=== PATIENT | male | born 1940 | race Caucasian/White ===

== ENCOUNTER 2016-07-04 10:37 | Inpatient (IN) ==
[2016-07-04] MEDS ORDERED: NS 1,000 ML IV ONE ×2 (10:48→12:11)
[2016-07-04 11:08] LABS: MANUAL DIFF NEEDED? NO
[2016-07-04] MEDS ORDERED: TYLENOL PR ONE (11:09)
[2016-07-04 11:12] LABS: BASO% 0.1 % (0.0-0.8); EOS# 0.01 X1000 (0.0-0.7); EOS% 0.1 % (0.0-10.0); HEMATOCRIT 39.6 % (42.0-52.0); HEMOGLOBIN 13.3 g/dL (14.0-18.0); IMM GRAN# 0.02 X1000 (0.0-0.04); IMM GRAN% 0.2 % (0.0-0.5); LYMPH# 2.38 X1000 (1.2-3.4); LYMPH% 23.8 % (20.5-51.1); MCH 30.6 PG (27-31); MCHC 33.6 g/dL (33-37); MCV 91.2 FL (81-99); MONO# 1.27 X1000 (0.11-0.59); MONO% 12.7 % (1.7-9.3); MPV 10.1 FL (7.4-10.4); NEUT% 63.1 % (42.2-75.2); PLT 250 X1000 (130-400); RBC 4.34 XMIL (4.7-6.1)
[2016-07-04 11:19] LABS: URINE CULTURE NEEDED? NO; URINE MICRO REVIEW NEEDED? NO; URINE SOURCE CATH
[2016-07-04 11:21] LABS: INR 1.08; PROTIME 11.4 Seconds (9.2-11.7); PTT 32.4 Seconds (22.0-36.0)
[2016-07-04 11:24] LABS: BILIRUBIN URINE NEGATIVE (NEGATIVE); BLOOD URINE NEGATIVE (NEGATIVE); COLOR YELLOW; GLUCOSE URINE NEGATIVE (NEGATIVE); LEUKOCYTES URINE NEGATIVE (NEGATIVE); NITRITE URINE NEGATIVE (NEGATIVE); PROTEIN URINE TRACE mg/dL (NEGATIVE); SP GRAVITY URINE 1.022; TURBIDITY URINE CLEAR (CLEAR); UR EPITHELIAL CELLS <10 /HPF (<10); URINE BACTERIA NEGATIVE /HPF; URINE RBC <10 /HPF (<10); URINE WBC <10 /HPF (<10); UROBILINOGEN URINE NORMAL (NORMAL)
[2016-07-04 11:26] LABS: ALLEN TEST YES; BE 0.3 mmoll (-3.0-3.0); BLOOD TYPE ARTERIAL; DRAW SITE R RADIAL; METHB 2.3 % (0.0-1.5); O2(CT) 16.9 mL/dL (15.0-23.0); PCO2(98.6) 31 mmHg (35-45); PO2(98.6) 57 mmHg (60-100); SAMPLE BLOOD; SAO2 98.8 % (95.0-100.0); THB 12.7 g/dL (11.5-17.4); pH(98.6) 7.48 (7.35-7.45)
[2016-07-04 11:29] LABS: MODALITY CANNULA
[2016-07-04 11:37] LABS: AGAP 15; ALBUMIN 3.4 g/dL (3.5-5.0); ALKALINE PHOSPHATASE 62 U/L (32-122); BUN 19 mg/dL (8-22); CALCIUM 8.5 mg/dL (8.8-10.2); CHLORIDE 97 mmol/L (98-107); COSMO 272; GOT 29 U/L (10-34); GPT 15 U/L (10-44); MAGNESIUM 1.7 mg/dL (1.5-2.7); POTASSIUM 4.4 mmol/L (3.5-5.1); SODIUM 134 mmol/L (136-145); TCO2 22 mmol/L (25-35); TOTAL BILIRUBIN 0.55 mg/dL (0.20-1.00); TOTAL PROTEIN 6.5 g/dL (6.3-8.3)
[2016-07-04 11:39] LABS: CK PROFILE 463 U/L (24-204)
[2016-07-04 11:57] LABS: CK INDEX 0.3 (0.0-2.5); CK-MB 1.23 ng/mL (0.0-5.0)
--- NOTE | 2016-07-04 11:58 | Diag Imaging Result Document ---
PROCEDURE NAME: CHEST-PORTABLE - 07/04/2016 PORTABLE CHEST: FINDINGS: The lungs are well expanded. The heart is not enlarged. No pneumonia. No pleural effusions identified. IMPRESSION: Negative chest.
[2016-07-04] MEDS ORDERED: XOPENEX NEB INH ONE (13:39)
[2016-07-04] MEDS ORDERED: NS NEB INH SCH (13:45)
[2016-07-04] MEDS ORDERED: SODIUM CHLORIDE 0.9% 10 ML ONE (13:48)
[2016-07-04] MEDS ORDERED: ZOSYN 3.375 GM/NS 3.375 GM/50 ML IVPB IV ONE (14:08)
[2016-07-04] MEDS ORDERED: LEVAQUIN 750 MG/D5W 750 MG/150 ML IVPB IV ONE (14:08)
[2016-07-04 14:27] LABS: CK INDEX 0.3 (0.0-2.5); CK-MB 1.43 ng/mL (0.0-5.0)
[2016-07-04] MEDS ORDERED: VANCOMYCIN IV PER PHARMACY MISC SCH (15:15)
[2016-07-04] MEDS: HUMULIN R SUBQ SCH ×2 (16:00→22:00)
--- NOTE | 2016-07-04 16:00 | Diag Imaging Result Document ---
PROCEDURE NAME: HEAD W/O CONTRAST - 07/04/2016 CT BRAIN WITHOUT CONTRAST: FINDINGS: Dose reduction protocol. No parenchymal hemorrhage. No epidural or subdural hematoma. No subarachnoid hemorrhage. There is atrophy with chronic microvascular ischemic changes. No hydrocephalus. No sinus opacification although there is mucous in the right frontal and both ethmoid sinuses with minimal mucosal thickening in the left maxillary sinus. IMPRESSION: 1. No hemorrhage. 2. Atrophy with chronic microvascular ischemic changes. 3. Mild sinusitis. A preliminary report was given at 1:38 PM.
--- NOTE | 2016-07-04 16:01 | HISTORY AND PHYSICAL ---
PRIMARY CARE PROVIDER: Urban Fisher MD CHIEF COMPLAINT: Fever. HISTORY OF PRESENT ILLNESS: Mr. Kaushal Fraser is a 76-year-old male with a history of dementia, bipolar disorder, PTSD, peripheral vascular disease, hypertension whose normal state of awareness is with dementia. Apparently, according to staff, he was more altered than usual after he developed a fever last night. Upon admission, he had a fever of 104.6, with rigors. He is nonverbal, but would open his eyes. Chest x-ray did not reveal any acute findings, but a pulmonary arteriogram showed that he had bilateral infiltrates with the right being greater than the left. He was started on Zosyn and Levaquin, given IV fluid bolus x2 and Xopenex nebulizers. He was placed on 100% non-rebreather and titrated down to 50% Venturi mask. Upon assessment, patient was nonverbal, would nod yes or no to some questions, he nodded no to pain and yes to being cold. Along with that, he was in rigors. We will admit to the ICU for sepsis and pneumonia. We will also order a flu swab to rule out the flu. PAST MEDICAL HISTORY: Hypothyroidism. Seizures. Hypertension. B12 deficiency. Dementia. Diabetes mellitus type 2. Hyperlipidemia. Bipolar disorder. PTSD. Paroxysmal vertigo. Hearing loss. Peripheral vascular disease. GERD. Arthritis. BPH. SURGICAL HISTORY: Unable to obtain. There was no information sent from [facility]. SOCIAL HISTORY: He is a resident at [facility]. Otherwise, no other information was able to be obtained. FAMILY HISTORY: Unable to obtain. REVIEW OF SYSTEMS: Patient nodded no to pain and yes to cold. Otherwise, unable to obtain any other information from him. ALLERGIES: Lovastatin. Naproxen. HOME MEDICATIONS: Vitamin B12 1000 mcg p.o. daily. Zipsor 25 mg p.o. twice daily. Divalproex sodium or Depakote 1000 mg p.o. nightly. Monopril 10 mg p.o. daily. Albuterol and Atrovent nebs every 4 hours. Synthroid 50 mcg p.o. daily. Risperdal, looks like 1.5 mg p.o. daily. PHYSICAL EXAMINATION: VITAL SIGNS: Temperature on admit 104.6, temperature down to 101.5, heart rate is 117. Respiratory rate 25, blood pressure 111/65, O2 saturations 92% on 15 L Venturi mask. GENERAL: Mr. Fraser is an ill-appearing 76-year-old male. He is having rigors. He does nod yes and no to some questions. Otherwise, unable to obtain information from him. HEENT: Atraumatic, normocephalic. Pupils equal, round, reactive to light. Will not perform extraocular movements. Mucous membranes are dry. NECK: No JVD or carotid bruits noted. CARDIOVASCULAR: S1, S2. Tachycardic rate and rhythm. No rubs, gallops, murmurs. PULMONARY: Rhonchi in the bilateral bases, primarily posteriorly. Currently on 15 L Venturi mask, 50% FiO2 with mild work of breathing. No accessory muscle use. GI: Soft, nontender, nondistended. Positive bowel sounds x4. EXTREMITIES: Trace pulses in the lower extremity. Dorsalis pedal pulses were trace. Radial pulses were +2. The feet were cool. Would not follow commands enough to move all extremities. NEUROLOGIC: Nodded to some questions. Squeezed hands. Otherwise, would not follow any other commands. SKIN: Warm, dry, intact, but feet are cool. LABORATORY DATA: White blood cells 9000, hemoglobin 13, hematocrit 39, platelet count 250,000. INR 1.08. D-dimer 1.24. PH 7.48, pCO2 31. PO2 57. Bicarb 25, base excess 0.3, saturation 95%. This is on 4 L nasal cannula. Lactate is 2.1. Sodium 134, potassium 4.4, BUN 19, creatinine 1.1, glucose 117, calcium 8.5, magnesium 1.7, bilirubin 0.55, AST 29, ALT 15, CK 475. Troponin 0.011, albumin 3.4. Plasma lactate was 2 and 1.7. Urinalysis: Trace protein and 10 ketones. Otherwise, negative. IMAGING: Chest x-ray: Negative chest. Pulmonary arteriogram: No pulmonary emboli. Bilateral lower lobe posterior infiltrates, right greater than left. Head CT: No acute findings. EKG: Sinus tach, rate 135 with a QTc of 546. ASSESSMENT/PLAN: 1. Pneumonia with bilateral posterior lobe infiltrates, right greater than left. We will cover with broad-spectrum antibiotics, ceftazidime and vancomycin. He has also received Levaquin and Zosyn in the ER. We will try to obtain a sputum culture. 2. Sepsis, secondary to pneumonia. White count is normal, but he is significantly febrile up to 104.6. We will also order for influenza screening and strep screening. Again, he is covered with broad-spectrum antibiotics. He is tachycardic with increased respiratory rate. We will do intravenous fluid hydration and repeat lactate tomorrow. We will send to the intensive care unit for close monitoring. 3. Acute hypoxemic respiratory insufficiency. He started out on 100% nonrebreather, has been weaned down to 50% Venturi mask. Aggressive pulmonary toilet as able. We will do Xopenex nebulizers secondary to fast heart rate with Atrovent, budesonide and acetylcysteine nebulizer. 4. Hypothyroidism. Continue Synthroid. 5. Dementia. Bipolar. Posttraumatic stress disorder. Continue home medications. 6. Gastroesophageal reflux disease. Proton pump inhibitor. 7. Arthritis. Continue home nonsteroidal antiinflammatory drugs 8. Hyperlipidemia. Continue statin. 9. Diabetes mellitus type 2. Sliding scale insulin. Pattern blood glucoses. 10. Hypertension. Stable. We will also hold antihypertensives. 11. B12 deficiency. Continue B12. 12. Questionable seizure disorder. He is on Depakote. Could be used as mood stabilizer instead of seizures, but patient unable to state his history, and seizures were not listed as a history from [facility]. 13. Deep venous thrombosis prophylaxis. Low-dose Lovenox. Dictated by WALE Noel for Michoacano De Los Santos MD cc: WALE Noel MD Steven C. Chandler, MD
--- NOTE | 2016-07-04 16:03 | Diag Imaging Result Document ---
PROCEDURE NAME: ANGIOGRAM/PULMONARY ARTERIES - 07/04/2016 CT CHEST WITH INTRAVENOUS CONTRAST: FINDINGS: There are infiltrates and atelectasis in both lower lobes. Findings most pronounced in the left lower lobe. There are also infiltrates inferiorly in the right middle lobe. The heart is not enlarged. No thoracic aortic aneurysm or dissection. Mildly prominent mediastinal and right hilar lymph nodes. Normal opacification of the pulmonary arteries and their major branches. IMPRESSION: 1. Posterior and inferior lower lobe infiltrates and atelectasis. 2. No pulmonary emboli. A preliminary report was given at 1:41 PM.
--- NOTE | 2016-07-04 16:14 | PROVIDER DOCUMENTATION ---
This chart was entered by Alison Dutton Scribe, acting as scribe for Gray Long MD. HPI-General Adult - General Stated Complaint: Fever, AMS Time Seen by Provider: 07/04/16 10:40 Source: patient Allergies/Adverse Reactions: Patient Allergies Allergy/AdvReac Type Severity Reaction Status Date / Time lovastatin [From Mevacor] Allergy Unknown Verified 07/04/16 11:34 naproxen [From Naprosyn] Allergy Unknown Verified 07/04/16 11:34 Home Medications: Home Medication List Medication Instructions Recorded Confirmed Last Taken Type Cyanocobalamin (Vitamin B-12) 1,000 mcg PO DAILY 07/04/16 07/04/16 07/03/16 History [Vitamin B-12] Diclofenac Potassium [Zipsor] 25 mg PO BID 07/04/16 07/04/16 07/03/16 History Divalproex Sodium [Divalproex 1,000 mg PO QHS 07/04/16 07/04/16 07/03/16 History Sodium ER] Fosinopril Sodium [Monopril] 10 mg PO DAILY 07/04/16 07/04/16 07/03/16 History Ipratropium/Albuterol Sulfate 3 ml IH Q4HR 07/04/16 07/04/16 07/03/16 History [Iprat-Albut 0.5-3(2.5) mg/3 ml] Levothyroxine [Synthroid] 50 microgm PO DAILY 07/04/16 07/04/16 07/03/16 History Risperidone [Risperdal] 0.5 mg PO DAILY 07/04/16 07/04/16 07/03/16 History Risperidone [Risperdal] 1 mg PO DAILY 07/04/16 07/04/16 07/03/16 History - History of Present Illness -Gen Adult Nature of Presenting Problems: Pt is a 76 yom who came to the ED via EMS from [facility]. Pt has a hx of dementia, the pt was reported to be acting more out of it than usual today. Maxwell reports the pt had a fever last night and since then the pt has gotten worse. The pt is awake but refusing to answer any questions. Location of Pain/Injury: reports: none Pain Radiation: reports: no radiation Quality of Pain: reports: none Onset/Duration: reports: last night Timing: reports: still present Associated Symptoms: reports: fever/chills Similar Symptoms Previously?: No Recently seen or treated by another doctor?: Yes Review of Systems - Adult - REVIEW OF SYSTEMS - ADULT Constitutional: reports: chills, fever. denies: fatique, night sweats Eyes: reports: no symptoms reported Ears, Nose, Mouth & Throat: reports: no symptoms reported Cardiovascular: reports: no symptoms reported Respiratory: reports: no symptoms reported Gastrointestinal: denies: abdominal pain, diarrhea, nausea, vomiting Genitourinary: reports: no symptoms reported Musculoskeletal: reports: no symptoms reported Integumentary: reports: no symptoms reported Neurological: reports: other (AMS). denies: dizziness/vertigo, loss of balance Psychiatric: reports: no symptoms reported Endocrine: reports: no symptoms reported Hematologic/Lymphatic: reports: no symptoms reported Allergic/Immunologic: reports: no symptoms reported All Other Systems: Reviewed and Negative Past History - Adult - PAST MEDICAL HISTORY-ADULT Review of Records: reports: Nursing Assessment Review Major Childhood Illnesses: reports: denies history Cardiovascular: reports: denies history Respiratory: reports: denies history Gastrointestinal: reports: denies history Obstetrical/Gynecological: reports: denies history Genitourinary: reports: denies history Musculoskeletal: reports: denies history Neurological: reports: denies history Endocrine/Immune: reports: denies history Other Conditions: reports: denies history - IMMUNIZATION STATUS Childhood Immunizations: See Nurse Assessment Flu Vaccine: See Nurse Assessment - FAMILY HISTORY Family History: reviewed, not pertinent Physical Exam-General - CONSTITUTIONAL General Appearance: alert, no apparent distress, other (does not respond to questions) - EYES Eyes: PERRL/EOMI, pink conjunctivae - HEAD, EARS, NOSE, MOUTH & THROAT HENMT: normocephalic/atraumatic. negative: moist mucous membranes - NECK Neck: supple - RESPIRATORY Respiratory: chest non-tender, rhonchi, other (tachypnea) - CARDIOVASCULAR Cardiovascular: regular rate, rhythm, tachycardia (140) - GASTROINTESTINAL (ABDOMEN) Abdominal Exam: non tender, soft, no pulsatile mass - MUSCULOSKELETAL Back Exam: normal inspection, no CVA tenderness, no vertebral tenderness Extremity: no calf tenderness. negative: erythema - SKIN Integumentary: negative: normal turgor - NEUROLOGIC Neurologic: grossly normal, other (agitated uncooperative with exam) - PSYCHIATRIC Psych/Mental Status: disoriented x 3 Progress - PLAN OF CARE/RESULTS Progress/Plan/Lab Results: Vital Signs - 8 hr 07/04/16 11:10 Temperature 104.6 F H Pulse Rate 131 H Respiratory Rate 26 H Blood Pressure 150/74 O2 Sat by Pulse Oximetry 85 L Orders Category Date Time Status Cardiac Monitoring DIRECTED Care 07/04/16 10:46 Active Fingerstick Blood Sugar [FSBS/Accucheck Result] NOW Care 07/04/16 10:48 Active IV Insertion ORDERED Care 07/04/16 10:46 Active Notify MD of + Sepsis Screen NOW Care 07/04/16 10:46 Active CHEST-PORTABLE [RAD] Stat Exams 07/04/16 10:47 Ordered HEAD W/O CONTRAST [CT] Stat Exams 07/04/16 10:56 Ordered ABG [RESP] Routine Lab 07/04/16 10:47 Ordered BLOOD CULTURE [BLDCUL] Stat Lab 07/04/16 10:50 Received CBC WITH DIFF [HEME] Stat Lab 07/04/16 10:50 Results CK PROFILE [SP CHEM] Stat Lab 07/04/16 10:50 Received COMPREHENSIVE METABOLIC PANEL [CHEM] Stat Lab 07/04/16 10:50 Received LACTATE, PLASMA [CHEM] Stat Lab 07/04/16 10:50 Received MAGNESIUM [CHEM] Stat Lab 07/04/16 10:50 Received PROTIME WITH INR [COAG] Stat Lab 07/04/16 10:50 Received PTT [COAG] Stat Lab 07/04/16 10:50 Received TROPONIN T Stat Lab 07/04/16 10:50 Received URINALYSIS W/POSS RFLX CULT-1 [URINALYSIS] Stat Lab 07/04/16 11:10 Ordered 0.9% Sodium Chloride Inj [Ns] 1,000 ml Med 07/04/16 10:48 Active IV 999 mls/hr Acetaminophen [Tylenol] Med 07/04/16 11:09 Discontinued 650 mg CO NOW ONE Oxygen Device Stat Oth 07/04/16 10:46 Active Result Diagrams: 07/04/16 10:50 07/04/16 10:50 - REASSESSMENT Reassessment #1 Time Reassessed: 14:11 (pt respiration is improving ) Status: improving - EKG 1 Time of EKG reading by physician:: 10:54 EKG Read and Signed by:: Gray Long EKG Interpretation (*Must complete 3 of following elements*): Abnormal Rate: 135 (nonspecific st and t wave abnormality ) Rhythm: sinus tachycardia 2 Time of EKG reading by physician:: 13:47 EKG Read and Signed by:: Gray Long EKG Interpretation (*Must complete 3 of following elements*): Abnormal Rate: 109 (nonspecific ST abnormality) Rhythm: sinus tachycardia - XRAY 1 XRAY Study: Chest Impression: Normal - CT/MRI 1 CT Study: Angiogram (No PE. Lower lobe posterior infiltrates) - CONSULTS/PCP/HOSPITALIST Notification #1 *Consult/PCP/Hospitalist*: [facility] Disposition: Will see in ED Departure - Departure Time of Disposition Decision: 16:13 DIAGNOSIS: Sepsis Qualifiers: Sepsis type: sepsis due to unspecified organism Qualified Code(s): A41.9 - Sepsis, unspecified organism Pneumonia Qualifiers: Pneumonia type: due to unspecified organism Laterality: left Lung location: lower lobe of lung Qualified Code(s): J18.1 - Lobar pneumonia, unspecified organism Disposition: ADMITTED INPATIENT 09 Certified Medical Emergency: Emergent Condition: Critical - Critical Care Note This patient required my direct personal management.: Yes Total Time (mins): 55 Critical Care Statement: This patient required my direct personal management to treat or rule out processes, the absence of which, could potentiallly result in sudden, clinically significant life or limb threatening deterioration. Sepsis: Tissue Perfusion Assmt - Physical Exam Assessment Date: 07/04/16 Time Assessment Initialized: 14:13 Vital Signs: Last Vital Signs Temp 102.7 F H 07/04/16 12:46 Pulse 102 H 07/04/16 13:51 Resp 20 07/04/16 13:51 BP 124/71 07/04/16 13:39 Pulse Ox 91 L 07/04/16 13:51 Height 5 ft 11 in Weight 150 lb Lung Sounds:: rhonchi Heart Sounds:: Regular Capillary Refill Time: Less Than 2 Seconds Peripheral Pulse Evaluation:: radial (R): 2+, radial (L): 2+, dorsalis-pedis (R) : 1+, dorsalis-pedis (L): 1+, posterior tibialis (R): 1+, posterior tibialis (L) : 1+ Skin Exam:: pink - Impression Impression:: Tissue Perfusion Adequate This chart was documented by the indicated scribe, (Alison Dutton, Ita) and accurately reflects the services I performed and decisions made by me, Gray Long MD, as attested by the provider's signature.
[2016-07-04] MEDS: ATROVENT NEB INH SCH ×3 (16:30→22:34)
[2016-07-04] MEDS: XOPENEX NEB INH SCH ×3 (16:30→22:34)
[2016-07-04] MEDS: OFIRMEV 1000 MG/ISOTONIC SOLN 1,000 MG/100 ML BOTTLE IV PRN (16:59)
[2016-07-04] MEDS: NS 1,000 ML IV SCH (17:43)
[2016-07-04] MEDS: TAZIDIME 1 GM in NS 50 ML IV SCH (17:43)
[2016-07-04] MEDS ORDERED: VANCOMYCIN 1,500 MG in NS 250 ML IV ONE (18:30)
[2016-07-04] MEDS: MUCOMYST 20% INH SCH (19:13)
[2016-07-04] MEDS: PULMICORT INH SCH (19:13)
[2016-07-04] MEDS ORDERED: SODIUM CHLORIDE 0.9% INJ PRN (20:14)
[2016-07-04] MEDS ORDERED: CATAFLAM PO SCH (21:00)
[2016-07-04] MEDS: DEPAKOTE ER PO SCH (22:18)
[2016-07-05] MEDS: TAZIDIME 1 GM in NS 50 ML IV SCH ×3 (01:00→16:08)
[2016-07-05] MEDS: XOPENEX NEB INH SCH ×6 (02:34→23:03)
[2016-07-05] MEDS: ATROVENT NEB INH SCH ×6 (02:34→23:03)
[2016-07-05] MEDS: NS 1,000 ML IV SCH ×3 (03:38→19:37)
[2016-07-05 04:54] LABS: BASO% 0.1 % (0.0-0.8); EOS% 2.5 % (0.0-10.0); HEMATOCRIT 35.3 % (42.0-52.0); HEMOGLOBIN 11.7 g/dL (14.0-18.0); IMM GRAN# 0.06 X1000 (0.0-0.04); IMM GRAN% 0.7 % (0.0-0.5); LYMPH# 1.48 X1000 (1.2-3.4); LYMPH% 18.3 % (20.5-51.1); MANUAL DIFF NEEDED? YES; MCH 30.3 PG (27-31); MCHC 33.1 g/dL (33-37); MCV 91.5 FL (81-99); MONO# 0.87 X1000 (0.11-0.59); MONO% 10.8 % (1.7-9.3); MPV 10.2 FL (7.4-10.4); NEUT% 67.6 % (42.2-75.2); PLT 172 X1000 (130-400); RBC 3.86 XMIL (4.7-6.1)
[2016-07-05 05:09] LABS: AGAP 12; ALBUMIN 2.5 g/dL (3.5-5.0); ALKALINE PHOSPHATASE 46 U/L (32-122); BUN 14 mg/dL (8-22); CALCIUM 8.5 mg/dL (8.8-10.2); CHLORIDE 105 mmol/L (98-107); COSMO 277; GOT 25 U/L (10-34); GPT 13 U/L (10-44); POTASSIUM 4.2 mmol/L (3.5-5.1); SODIUM 138 mmol/L (136-145); TCO2 21 mmol/L (25-35); TOTAL BILIRUBIN 0.51 mg/dL (0.20-1.00); TOTAL PROTEIN 5.9 g/dL (6.3-8.3)
[2016-07-05 05:13] LABS: ALLEN TEST YES; BE 0.9 mmoll (-3.0-3.0); BLOOD TYPE ARTERIAL; DRAW SITE R RADIAL; METHB 1.7 % (0.0-1.5); O2(CT) 16.7 mL/dL (15.0-23.0); PCO2(98.6) 31 mmHg (35-45); PO2(98.6) 181 mmHg (60-100); SAMPLE BLOOD; SAO2 99.6 % (95.0-100.0); pH(98.6) 7.49 (7.35-7.45)
[2016-07-05 05:14] LABS: BANDS 42 % (0-1); BASO 2 % (0-1); EOS 2 % (1-10); LYMPHS 20 % (21-51); MONO 8 % (1-9)
[2016-07-05 05:15] LABS: MODALITY VENTIMASK
[2016-07-05] MEDS: SYNTHROID IV SCH (06:18)
[2016-07-05] MEDS: HUMULIN R SUBQ SCH ×4 (06:19→20:39)
--- NOTE | 2016-07-05 06:35 | EKG Report ---
Test Performed on : 07/05/2016 05:42:18 AM Test Reason : evaluate qtc Blood Pressure : / mmHG Vent. Rate : 096 BPM Atrial Rate : 096 BPM P-R Int : 174 ms QRS Dur : 086 ms QT Int : 358 ms P-R-T Axes : 056 002 064 degrees QTc Int : 452 ms Normal sinus rhythm. Normal ECG When compared with ECG of 04-JUL-2016 13:47, (Unconfirmed) No significant change was found Confirmed by Sky Youssef MD ([id number]) on 07/05/2016 8:24:49 AM
[2016-07-05] MEDS ORDERED: SYNTHROID PO SCH (07:00)
[2016-07-05] MEDS: VITAMIN B-12 PO SCH (08:09)
[2016-07-05] MEDS: RISPERDAL PO SCH (08:10)
[2016-07-05] MEDS: SODIUM CHLORIDE 0.9% INJ SCH (08:10)
[2016-07-05] MEDS: LOVENOX SUBQ SCH (08:11)
[2016-07-05] MEDS: PROTONIX IV SCH (08:11)
--- NOTE | 2016-07-05 08:17 | Diag Imaging Result Document ---
PROCEDURE NAME: CHEST-PORTABLE - 07/05/2016 PORTABLE CHEST: Compared with 07/04/2016. FINDINGS: There is hazy airspace disease at the bilateral bases which is increased. There is no pneumothorax seen. Heart size is normal. IMPRESSION: Hazy airspace disease at bilateral bases which has increased.
[2016-07-05] MEDS: PULMICORT INH SCH ×2 (08:20→19:10)
[2016-07-05] MEDS: MUCOMYST 20% INH SCH ×2 (08:20→19:09)
--- NOTE | 2016-07-05 10:53 | PROGRESS NOTE ---
DATE: 07/05/2016 SUBJECTIVE: Today Mr. Fraser refers to be doing a little better. Denies any acute symptoms. OBJECTIVELY: Vitals: Blood pressure is 121/79, pulse of 103, respirations 18, temperature 99.0 degrees. General Examination: Mr. Fraser is a 76-year-old male. He is in bed. Does not seem to be in any distress. HEENT: Mucosa is pink and moist. Anicteric. Acyanotic. Neck: Supple. Chest: Air entry is bilaterally reduced. There is bibasilar coarse crepitations, more on the right posterior lung field. Cardiovascular: Tachycardic. No murmurs, no rubs, no gallops. Abdomen: Soft, nontender. Extremities: No pedal edema. HEALTH INFORMATION INTERNSHIP: Patient is alert, oriented to person, disoriented to place and time. The patient does have a resting tremor and also rigidity. LABORATORY DATA: WBC is 8.09, hemoglobin 11.7, platelet count of 172,000. Patient has 42% of bands. PH is 7.49, pCO2 of 31, PaO2 of 181. This was on Ventimask. Sodium is 138, potassium is 4.2, chloride 105, bicarb is 21. Liver function tests are fine. A chest x-ray this morning shows hazy airspace disease at bilateral bases, which has increased. ASSESSMENT: 1. Sepsis due to underlying pneumonia. 2. Multifocal pneumonia. 3. Bandemia, likely due to underlying sepsis. 4. Acute hypoxemic respiratory failure on presentation due to underlying pneumonia. 5. History of dementia. 6. Suspected Parkinson disease. 7. A resident of [facility]. I think in general Mr. Fraser is doing relatively fine. Was brought in yesterday because of shortness of breath. Investigations with CTA of the lungs has shown multifocal infiltrates, suspicious for pneumonia. Patient is currently on IV antibiotics with ceftazidime and vancomycin to cover for healthcare associated agents. The patient will also continue with his home medications. We will continue observing the patient in the ICU one more day. Hopefully, will be able to transfer him to the floor tomorrow. CRITICAL TIME SPENT: Forty-five minutes. cc: Michoacano De Los Santos MD
[2016-07-05] MEDS: VANCOMYCIN 1 GM/NS 1 GM/250 ML IVPB IV SCH (18:48)
[2016-07-05] MEDS: OFIRMEV 1000 MG/ISOTONIC SOLN 1,000 MG/100 ML BOTTLE IV PRN (19:40)
[2016-07-05] MEDS: DEPAKOTE ER PO SCH (22:29)
[2016-07-06] MEDS: TAZIDIME 1 GM in NS 50 ML IV SCH ×3 (00:29→16:26)
[2016-07-06] MEDS: ATROVENT NEB INH SCH ×6 (02:54→22:45)
[2016-07-06] MEDS: XOPENEX NEB INH SCH ×6 (02:54→22:45)
[2016-07-06] MEDS: NS 1,000 ML IV SCH ×2 (03:37→10:52)
--- NOTE | 2016-07-06 05:57 | EKG Report ---
Test Performed on : 07/04/2016 1:47:47 PM Test Reason : tachy Blood Pressure : / mmHG Vent. Rate : 109 BPM Atrial Rate : 109 BPM P-R Int : 178 ms QRS Dur : 082 ms QT Int : 328 ms P-R-T Axes : 055 -02 052 degrees QTc Int : 441 ms Sinus tachycardia. Nonspecific ST abnormality Abnormal ECG When compared with ECG of 04-JUL-2016 10:54, (Unconfirmed) Nonspecific T wave abnormality no longer evident in Lateral leads Unconfirmed Result
--- NOTE | 2016-07-06 05:57 | EKG Report ---
Test Performed on : 07/04/2016 10:54:25 AM Test Reason : Blood Pressure : / mmHG Vent. Rate : 135 BPM Atrial Rate : 129 BPM P-R Int : 000 ms QRS Dur : 088 ms QT Int : 364 ms P-R-T Axes : 000 009 076 degrees QTc Int : 546 ms Supraventricular tachycardia. Nonspecific ST and T wave abnormality Abnormal ECG No previous ECGs available Unconfirmed Result
[2016-07-06 07:01] LABS: MANUAL DIFF NEEDED? NO
[2016-07-06 07:07] LABS: BASO% 0.1 % (0.0-0.8); EOS# 0.08 X1000 (0.0-0.7); EOS% 1.1 % (0.0-10.0); HEMATOCRIT 35.5 % (42.0-52.0); HEMOGLOBIN 11.5 g/dL (14.0-18.0); IMM GRAN# 0.02 X1000 (0.0-0.04); IMM GRAN% 0.3 % (0.0-0.5); LYMPH# 2.44 X1000 (1.2-3.4); LYMPH% 34.7 % (20.5-51.1); MCH 29.8 PG (27-31); MCHC 32.4 g/dL (33-37); MONO# 0.53 X1000 (0.11-0.59); MONO% 7.5 % (1.7-9.3); NEUT% 56.3 % (42.2-75.2); PLT 192 X1000 (130-400); RBC 3.86 XMIL (4.7-6.1)
[2016-07-06] MEDS: SYNTHROID IV SCH (07:16)
[2016-07-06] MEDS: HUMULIN R SUBQ SCH ×4 (07:19→20:19)
[2016-07-06] MEDS: PULMICORT INH SCH ×2 (07:25→18:51)
[2016-07-06] MEDS: MUCOMYST 20% INH SCH ×2 (07:25→18:50)
[2016-07-06 07:30] LABS: AGAP 10; BUN 12 mg/dL (8-22); CALCIUM 8.6 mg/dL (8.8-10.2); CHLORIDE 109 mmol/L (98-107); COSMO 288; SODIUM 145 mmol/L (136-145); TCO2 26 mmol/L (25-35)
[2016-07-06] MEDS: LOVENOX SUBQ SCH (07:43)
[2016-07-06] MEDS: SODIUM CHLORIDE 0.9% INJ SCH (07:43)
[2016-07-06] MEDS: PROTONIX IV SCH (07:44)
[2016-07-06] MEDS: RISPERDAL PO SCH (09:55)
[2016-07-06] MEDS: VITAMIN B-12 PO SCH (09:55)
--- NOTE | 2016-07-06 14:36 | PROGRESS NOTE ---
DATE: 07/06/2016 SUBJECTIVE: Today Mr. Fraser refers to be doing a little better. Per the nursing staff, there have not been any acute changes. OBJECTIVE: Vital Signs: Blood pressure is 135/80, pulse of 83, respirations 18, temperature is 98.4 degrees. General: Mr. Fraser is a 76-year-old male. He was in bed not seemingly distressed. HEENT: Mucosa is pink and moist. Anicteric. Acyanotic. Neck: Supple. Chest: Air entry is bilaterally reduced, but there was not any rhonchi. Cardiovascular: Regular rate and rhythm. Abdomen: Soft, nontender. Extremities: No pedal edema. VP DIRECTOR OF CREATIVE STRATEGY: Patient is alert, oriented to person, disoriented to place and time. The patient is able to move extremities upon painful stimulation. Does have features consistent with Parkinson disease. LABORATORY DATA: WBC is 7.04, hemoglobin is 11.5, platelet count is 192. Chemistry is reviewed and completely unremarkable. ASSESSMENT: 1. Sepsis secondary to pneumonia. 2. Multifocal pneumonia. The patient is a resident of a custodial. We are treating this as healthcare-associated pneumonia with ceftazidime to cover Pseudomonas and vancomycin for possible methicillin-resistant Staphylococcus aureus coverage. 3. Acute hypoxemic respiratory failure on presentation due to underlying pneumonia. 4. Suspect Parkinson disease. 5. History of dementia. 6. Mild hyperchloremia. We are going to change the current fluid to half-strength normal saline. I think Mr. Fraser is doing a whole lot better. We are going to transfer him from the ICU to the floor. We will continue with gentle hydration, the antibiotics and put in physical therapy to help with early mobilization. cc: Michoacano De Los Santos MD
[2016-07-06] MEDS: D5 1/2 NS 1,000 ML IV SCH (16:26)
--- NOTE | 2016-07-06 16:55 | Extremity Venous Study ---
PROCEDURE NAME: Venous U/S Bilateral Legs - 07/05/2016 Patient is referred by Dr. De Los Santos. Read by Dr. Gutierrez. Tech is Alcides. Patient has an elevated D-dimer. FINDINGS: Bilateral lower extremity venous images accomplished. The common femoral, superficial femoral, deep femoral, popliteal, posterior tibial, peroneal, and greater saphenous are imaged. The views are somewhat limited. Doppler is used to evaluate the veins for spontaneity, phasicity, respiratory excursion, and distal augmentation. All veins identified are compressible. INTERPRETATION: No evidence of deep or superficial venous thrombosis in either lower extremity in the veins identified. cc: MD Isabel Mccarty CRNP
[2016-07-06] MEDS ORDERED: TYLENOL PO PRN (17:03)
[2016-07-06] MEDS: VANCOMYCIN 1 GM/NS 1 GM/250 ML IVPB IV SCH (18:04)
[2016-07-06] MEDS: DEPAKOTE ER PO SCH (20:38)
[2016-07-07] MEDS: TAZIDIME 1 GM in NS 50 ML IV SCH ×3 (00:32→15:05)
[2016-07-07] MEDS: XOPENEX NEB INH SCH ×6 (03:06→22:39)
[2016-07-07] MEDS: ATROVENT NEB INH SCH ×6 (03:06→22:39)
[2016-07-07] MEDS: D5 1/2 NS 1,000 ML IV SCH ×3 (04:43→20:29)
[2016-07-07] MEDS: HUMULIN R SUBQ SCH ×4 (06:04→20:28)
[2016-07-07] MEDS: SYNTHROID IV SCH (06:15)
[2016-07-07] MEDS: MUCOMYST 20% INH SCH ×2 (08:07→18:57)
[2016-07-07] MEDS: PULMICORT INH SCH ×2 (08:07→18:57)
[2016-07-07] MEDS: PROTONIX IV SCH (08:17)
[2016-07-07] MEDS: VITAMIN B-12 PO SCH (08:17)
[2016-07-07] MEDS: SODIUM CHLORIDE 0.9% INJ SCH (08:17)
[2016-07-07] MEDS: LOVENOX SUBQ SCH (08:17)
[2016-07-07] MEDS: RISPERDAL PO SCH (08:17)
--- NOTE | 2016-07-07 15:25 | PROGRESS NOTE ---
DATE: 07/07/2016 SUBJECTIVE: Today Mr. Fraser refers to be doing fine. Per the nursing staff, there have not been any acute changes overnight. OBJECTIVE: vital signs: Blood pressure is 141/71, pulse of 71, respirations 18, temperature 98.2 degrees. General: Mr. Fraser, a 76-year-old male. He was in bed. He did not seem to be in any distress. HEENT: Mucosa is pink and moist. Anicteric and acyanotic. Neck: Neck is supple. Chest: Good air entry bilateral. No crepitations. No rhonchi. Cardiovascular: Regular rate and rhythm. Abdomen: Soft, nontender. Extremities: No pedal edema. PUMP MACHINE OPERATOR: Patient is awake. He is alert, a little kind of slow in reaction. He also has baseline resting tremor and other features consistent with Parkinson disease. LABORATORY DATA: None for today. Glucose is 144. Microbiology: Blood cultures have been 48 hours negative. ASSESSMENT: 1. Sepsis secondary to pneumonia. 2. Multifocal pneumonia. Patient is currently on vancomycin and ceftazidime. 3. Acute hypoxemic respiratory failure on presentation due to underlying pneumonia. 4. Suspected Parkinson disease. We will start the patient on antiparkinson medication (levodopa- carbidopa). 5. History of dementia. PLAN: In general, I think Mr. Fraser is doing a whole lot better. We are going to remove the Delgado catheter, encourage physical therapy to continue working with him. The patient is tolerating his diet without any signs of aspiration. We will continue the current antibiotic coverage. The patient is pending bed on the floor. Hopefully, be able to transfer him today. I anticipate that by tomorrow we might be able to discharge the patient to the custodial. cc: Michoacano De Los Santos MD
[2016-07-07] MEDS: SINEMET 25/100 PO SCH (17:50)
[2016-07-07] MEDS: VANCOMYCIN 1 GM/NS 1 GM/250 ML IVPB IV SCH (20:13)
[2016-07-07] MEDS: DEPAKOTE ER PO SCH (20:34)
[2016-07-08] MEDS: TAZIDIME 1 GM in NS 50 ML IV SCH ×4 (00:44→23:34)
[2016-07-08] MEDS: ATROVENT NEB INH SCH ×6 (02:43→23:12)
[2016-07-08] MEDS: XOPENEX NEB INH SCH ×6 (02:43→23:12)
[2016-07-08] MEDS: D5 1/2 NS 1,000 ML IV SCH ×4 (03:04→16:56)
[2016-07-08 05:30] LABS: BASO% 0.3 % (0.0-0.8); EOS# 0.08 X1000 (0.0-0.7); EOS% 1.4 % (0.0-10.0); HEMATOCRIT 38.7 % (42.0-52.0); HEMOGLOBIN 12.6 g/dL (14.0-18.0); IMM GRAN# 0.08 X1000 (0.0-0.04); IMM GRAN% 1.4 % (0.0-0.5); LYMPH# 1.91 X1000 (1.2-3.4); MCH 29.3 PG (27-31); MCHC 32.6 g/dL (33-37); MONO# 0.73 X1000 (0.11-0.59); MONO% 12.6 % (1.7-9.3); MPV 9.6 FL (7.4-10.4); NEUT% 51.3 % (42.2-75.2); PLT 277 X1000 (130-400)
[2016-07-08 05:39] LABS: AGAP 14; BUN 7 mg/dL (8-22); CALCIUM 8.5 mg/dL (8.8-10.2); CHLORIDE 106 mmol/L (98-107); COSMO 289; POTASSIUM 3.6 mmol/L (3.5-5.1); SODIUM 146 mmol/L (136-145); TCO2 26 mmol/L (25-35)
[2016-07-08] MEDS: HUMULIN R SUBQ SCH ×4 (06:18→20:26)
[2016-07-08] MEDS: SYNTHROID IV SCH (06:19)
[2016-07-08] MEDS: MUCOMYST 20% INH SCH ×2 (07:52→19:09)
[2016-07-08] MEDS: PULMICORT INH SCH ×2 (07:52→19:09)
[2016-07-08] MEDS: SINEMET 25/100 PO SCH ×3 (09:02→17:45)
[2016-07-08] MEDS: VITAMIN B-12 PO SCH (09:02)
[2016-07-08] MEDS: SODIUM CHLORIDE 0.9% INJ SCH (09:03)
[2016-07-08] MEDS: RISPERDAL PO SCH (09:03)
[2016-07-08] MEDS: VANCOMYCIN 1 GM/NS 1 GM/250 ML IVPB IV SCH ×2 (09:03→19:31)
[2016-07-08] MEDS: PROTONIX IV SCH (09:03)
[2016-07-08] MEDS: LOVENOX SUBQ SCH (09:03)
[2016-07-08 09:13] LABS: MANUAL DIFF NEEDED? YES
[2016-07-08 10:02] LABS: LYMPHS 38 % (21-51); MONO 8 % (1-9)
--- NOTE | 2016-07-08 15:06 | PROGRESS NOTE ---
DATE: 07/08/2016 SUBJECTIVE: Today Mr. Fraser refers to be doing fine. Per the nursing staff, he did not actually eat a lot. OBJECTIVE: Vital signs: Blood pressure is 130/81, pulse of 80, respiration is 21, temperature 98.1 degrees. Patient's saturation is 90% on 2 L of oxygen. General: Objectively, Mr. Fraser is a 76-year-old male. He is in bed. He did not seem to be in any distress. HEENT: Mucosa is pink and moist. Anicteric. Acyanotic. Neck: Supple. Chest: Good air entry bilaterally. A few bibasilar crepitations. Cardiovascular: Regular rate and rhythm. No murmurs, no rubs. No gallops. Abdomen: Soft, nontender. Extremities: No pedal edema. PHOTOENGRAVING PRINTER: Patient is awake. Oriented to person, disoriented to place and to time. The patient does have some residual pill-rolling tremor and has other features of Parkinson disease. LABORATORY DATA: WBC is 5.78, hemoglobin is 12.6, platelet count of 277. Patient has no bands on peripheral smear today. Chemistry is reviewed. Sodium is 146. Rest of electrolytes is normal. ASSESSMENT: 1. Sepsis on presentation secondary to pneumonia. 2. Multifocal pneumonia. Patient is currently on vancomycin and ceftazidime and seems to be doing fine. 3. Acute hypoxemic respiratory failure secondary to pneumonia. 4. Parkinson disease. The patient is currently on levodopa and carbidopa. 5. History of dementia. 6. Mild hypernatremia. Will continue with D 5 half-normal saline for gentle hydration. 7. Poor appetite. Unsure if this is just related to her underlying chronic neuro degenerative disease (dementia and Parkinson). Will start the patient on diet supplementation to see if that will help him and also mirtazapine. cc: Michoacano De Los Santos MD
[2016-07-08] MEDS: DEPAKOTE ER PO SCH (20:33)
[2016-07-09] MEDS: D5 1/2 NS 1,000 ML IV SCH ×2 (02:51→13:37)
[2016-07-09] MEDS: ATROVENT NEB INH SCH ×3 (03:52→11:42)
[2016-07-09] MEDS: XOPENEX NEB INH SCH ×3 (03:52→11:42)
[2016-07-09 04:58] LABS: MANUAL DIFF NEEDED? NO
[2016-07-09 05:02] LABS: BASO% 0.3 % (0.0-0.8); EOS# 0.07 X1000 (0.0-0.7); HEMATOCRIT 38.4 % (42.0-52.0); IMM GRAN# 0.13 X1000 (0.0-0.04); IMM GRAN% 1.8 % (0.0-0.5); LYMPH# 2.18 X1000 (1.2-3.4); LYMPH% 30.6 % (20.5-51.1); MCH 30.4 PG (27-31); MCHC 33.9 g/dL (33-37); MCV 89.9 FL (81-99); MONO# 1.02 X1000 (0.11-0.59); MONO% 14.3 % (1.7-9.3); MPV 9.4 FL (7.4-10.4); PLT 267 X1000 (130-400); RBC 4.27 XMIL (4.7-6.1)
[2016-07-09 05:24] LABS: AGAP 13; BUN 5 mg/dL (8-22); CALCIUM 8.6 mg/dL (8.8-10.2); CHLORIDE 103 mmol/L (98-107); COSMO 278; POTASSIUM 3.8 mmol/L (3.5-5.1); SODIUM 141 mmol/L (136-145); TCO2 25 mmol/L (25-35)
[2016-07-09] MEDS: HUMULIN R SUBQ SCH ×2 (06:15→10:35)
[2016-07-09] MEDS: SYNTHROID IV SCH (06:15)
[2016-07-09] MEDS: MUCOMYST 20% INH SCH (08:16)
[2016-07-09] MEDS: PULMICORT INH SCH (08:16)
[2016-07-09] MEDS: SINEMET 25/100 PO SCH ×2 (08:20→13:32)
[2016-07-09] MEDS: TAZIDIME 1 GM in NS 50 ML IV SCH (08:20)
[2016-07-09] MEDS: LOVENOX SUBQ SCH (08:20)
[2016-07-09] MEDS: RISPERDAL PO SCH (08:20)
[2016-07-09] MEDS: VITAMIN B-12 PO SCH (08:21)
[2016-07-09] MEDS: SODIUM CHLORIDE 0.9% INJ SCH (08:21)
[2016-07-09] MEDS: PROTONIX IV SCH (08:21)
[2016-07-09] MEDS: VANCOMYCIN 1 GM/NS 1 GM/250 ML IVPB IV SCH (09:39)
--- NOTE | 2016-07-09 14:52 | DISCHARGE SUMMARY ---
ADMISSION DATE: 07/04/2016 DISCHARGE DATE: 07/09/2016 DISPOSITION: [facility]. CONSULTATION DURING THIS ADMISSION: None. INVASIVE PROCEDURES DONE DURING ADMISSION: None. IMAGING STUDIES OF SIGNIFICANCE: 1. CT scan of the head was done, which showed no hemorrhage, atrophy with chronic microvascular changes, mild sinusitis. 2. Pulmonary CTA was done, which showed posterior and inferior lobe infiltrates and atelectasis. No pulmonary emboli. 3. Extremity venous studies were done that showed no evidence of deep vein thrombosis. ADMISSION DIAGNOSES: 1. Pneumonia with bilateral posterior lobe infiltration. 2. Sepsis secondary to pneumonia. 3. Acute hypoxemic respiratory failure. 4. Hypothyroidism. 5. Dementia. DISCHARGE DIAGNOSES: 1. Acute hypoxemic respiratory failure secondary to pneumonia. 2. Multifocal pneumonia. 3. Sepsis on presentation due to underlying pneumonia. 4. Parkinson disease. 5. Dementia. 6. Poor appetite. Can follow up with the discharge summary that has been already been dictated by WALE Damon. cc: Michoacano De Los Santos MD
[2016-07-09 16:24] VITALS: BP 109/72
[2016-07-09] MEDS ORDERED: DOXYCYCLINE PO SCH (21:00)
--- NOTE | 2016-07-09 21:56 | DISCHARGE SUMMARY ---
ADMISSION DATE: 07/04/2016 DISCHARGE DATE: 07/09/2016 CONSULTATIONS: None. PERTINENT PROCEDURES: 1. Head CT showing no hemorrhage or atrophy with chronic microvascular changes, mild sinusitis. 2. Pulmonary arteriogram showed posterior and inferior lower lobe infiltrates and atelectasis. No pulmonary edema. No pulmonary emboli. 3. Bilateral lower extremity Doppler showed no evidence of deep or superficial venous thrombosis in either lower extremity. DISCHARGE DIAGNOSES: 1. Sepsis on presentation secondary to pneumonia. Resolved. 2. Multifocal pneumonia. The patient will be discharged on p.o. antibiotics. 3. Acute hypoxemic respiratory failure secondary to pneumonia. Resolved. 4. Parkinson's disease. Continue levodopa and carbidopa. 5. History of dementia. Aware. 6. Mild hyponatremia. Resolved. HOSPITAL COURSE: Mr. Fraser is a 76-year-old, male with a history of dementia, bipolar disorder, PTSD, PVD, hypertension whose normal state of awareness is with dementia. According to staff he was more altered than usual and developed a fever. Upon admission he had a fever of 104.6 with rigors. He was nonverbal but he would open his eyes. Chest x-ray did not reveal any acute findings. Pulmonary arteriogram showed he had bilateral infiltrates with the right being greater than the left. He was started on Zosyn and Levaquin, given IV fluid boluses x2, Xopenex nebulizers, placed on 100% non-rebreather, titrated down to 50% Ventimask. The patient was admitted to the ICU with pneumonia and sepsis as well as acute hypoxemic respiratory failure. Mr. fraser was able to come off his non-rebreather. He was set to be transferred out of the ICU to the regular floor on 07/06 and to continue with hydration as well as IV antibiotics and physical therapy. He was able to get his Delgado out. He worked with physical therapy, however, due to lack of regular floor beds the patient stayed in the ICU awaiting a bed. He will be discharged from the ICU today, however, it is due to no floor beds being available. VITAL SIGNS AT TIME OF DISCHARGE: Temperature 97.4 degrees, heart rate 81, respirations 18, blood pressure is 91/56, O2 is 97% on 2 L nasal cannula. DISCHARGE DIET: Diabetic with Ensure t.i.d. DISCHARGE MEDICATIONS: 1. Sinemet 25/100, 1 each p.o. t.i.d. 2. Vitamin B12, 1000 mcg p.o. daily. 3. ER 1000 mg p.o. at bedtime. 4. Doxycycline 100 mg p.o. b.i.d. 5. Monopril 10 mg p.o. daily. 6. Ipratropium/albuterol sulfate 3 mL inhaled q.4 hours. 7. Levaquin 250 mg p.o. daily. 8. Synthroid 50 mcg p.o. daily. 9. Risperdal 1 mg p.o. daily. 10. Risperdal 0.5 mg p.o. at bedtime. FOLLOWUP: Patient is being discharged back to [facility] where he will finish a full course of IV antibiotics as well as continue breathing treatments. Patient can return to the ED for any worsening of symptoms. DISCHARGE TIME: 30 minutes. Dictated by WALE Smith for Michoacano De Los Santos MD cc: Michoacano De Los Santos MD
[2016-07-10] MEDS ORDERED: LEVAQUIN PO SCH (09:00)
== END 2016-07-09 16:45 ==
LOC: ED 10:37 → EDIPHOLD 15:28 → ICU 18:08
PROVIDERS: ATTEND Internal Medicine